=== PATIENT | female | born 1940 | race Caucasian/White ===

== ENCOUNTER 2024-09-13 10:04 | Emergency (ER) | payer MEDICARE, OTHER, SELFPAY ==
[2024-09-13] VITALS (11 sets, daily range): BP systolic 140–178; BP diastolic 67–86; PULSE 67–81; RESP 15–25; TEMP 36.8; O2SAT 95–100; BMI 21.1
--- NOTE | 2024-09-13 10:03 | ED.GENADULT ---
HPI - General Adult General Chief complaint: Fall Stated complaint: Fall Time Seen by Provider: 09/13/24 10:14 History of Present Illness HPI narrative: 84-year-old woman who lives in assisted living facility, [facility] in [place], brought in by medics after being found on the floor. Patient notes that she has had quite a few falls over the last week. He is currently complaining of right knee pain and unwilling/unable to bear weight secondary to pain. Her right leg is somewhat internally rotated and foreshortened. She does not have obvious bruises. Apparently there is some dementia at baseline and she has not appointment with her primary care physician to review this on the . Patient's recollection of the events over the last week including multiple falls and how she ended up on the floor today is not helpful today. She states she does not currently have any abdominal pain, headache, chest pain. She does not think she has had a cough or fever. Related Data Home Medications Medication Instructions Recorded Confirmed ASPIRIN (Aspir-Low) 81 mg PO Q DAY ##0 08/26/12 CALCIUM CARBONATE (TUMS ) 500 mg PO PRN ##0 08/26/12 CPAP: CPAP/PAP Nasal Mask HS ##0 08/26/12 Coenzyme Q10 (#CO Q-10) 100 mg PO Q DAY ##0 08/26/12 PARTIALLY HYDROLYZED GUAR 1 tbls PO QD-TID ##0 08/26/12 (#BENEFIBER) [VITAMINS ] ##0 08/26/12 cholecalciferol (vitamin D3) 25 1,000 iu PO Q DAY ##0 08/26/12 mcg (1,000 unit) tablet (Vitamin D3) cyanocobalamin (vitamin B-12) 500 500 mcg PO QDAY ##0 08/26/12 mcg tablet (Vitamin B-12) famotidine 20 mg tablet 20 mg PO HS ##0 08/26/12 nitroglycerin 0.4 mg sublingual 0.4 mg sublingual PRN ##0 08/26/12 tablet (Nitrostat) CALCIUM CARBONATE/VITAMIN D3 1 ctb PO BID ##0 08/27/12 (Calcium 600 With Vit D Chew Tb) MULTIVITAMIN (DAILY COURTNEY) 1 tab PO ##0 08/27/12 metoprolol tartrate 50 mg tablet 50 mg PO BID ##0 08/27/12 simvastatin 20 mg tablet (Zocor) 2 tabs PO HS ##0 08/27/12 Previous Rx's Medication Instructions Recorded alendronate 70 mg tablet (Fosamax) 70 mg PO QWEEK ##12 12/24/12 melatonin 1 mg tablet 1 mg PO BEDTIME sleep #60 tabs 09/13/24 trazodone 50 mg tablet 25 mg (1/2 x 50 mg) PO BEDTIME PRN 09/13/24 insomnia #30 tabs Allergies Allergy/AdvReac Type Severity Reaction Status Date / Time From CRESTOR Allergy Mild MALAISE Uncoded 02/27/18 13:06 Review of Systems Review of Systems Narrative: Pertinent positive and negative findings as per HPI Patient History Medical History (Updated 09/13/24 @ 12:34 by Nalini Freire MD) Do not resuscitate status Hyperlipidemia History of colon cancer Coronary artery disease Social History Smoking Status: Never smoker Exam Initial Vital Signs Initial Vital Signs: Vital Signs Blood Pressure 143/86 H 09/13/24 10:07 General: Frail, while she is lying on the stretcher she is in no acute distress. HEENT: Moist mucous membranes, normal sclera with reactive pupils, Neck: No JVD, supple Respiratory: Lungs are clear to auscultation, no wheezing no rales no rhonchi. Full and symmetrical air movement, no tenderness with manipulation of the thorax Cardiac: Regular rate and rhythm no murmurs no bruits Abdomen: Soft, nontender, good bowel tones, no flank pain Skin: Warm and dry, minimal bruising, no sequelae of pressure sores from lying on the ground for an extended period of time Neurologic: Globally weak, she has difficulty in raising her right leg because of knee/hip pain but it does not appear to be week. No upper extremity localizing symptoms Extremities: No obvious bruising or contusion. Minor effusion to the right knee with tenderness and not wanting to bend the knee. Mild tenderness in the right hip as well exam is limited by pain in the knee and not wanting to move the leg at all. No significant swelling distal to the knee Psych: Cooperative, pleasantly confused Course Orders Ordered: ED Orders 09/13/24 10:11 CT cervical spine wo con Stat XR hip w pel if done RT 2V Stat XR knee RT 3V Stat 09/13/24 10:12 CT head/brain wo con Stat XR chest 1V Stat 09/13/24 10:30 TSH w/ Reflex to FT4 Stat 09/13/24 10:35 Complete Blood Count AUTO DIFF Stat Comprehensive Metabolic Panel Stat NT-proBNP (BNP-Adult 18+) Stat Troponin I Stat 09/13/24 11:03 EKG-12 Lead Stat 09/13/24 11:37 Urinalysis and Microscopic Stat Discontinued Medications Acetaminophen (Acetaminophen 325 Mg Tablet) 650 mg PO NOW ONE Stop: 09/13/24 12:09 Last Admin: 09/13/24 12:16 Dose: 650 mg Documented By: SHITAL Vital Signs Vital signs: Vital Signs - 8 hr 09/13/24 10:07 09/13/24 10:08 09/13/24 10:08 Temperature 98.2 F Pulse Rate 75 81 Respiratory Rate 16 Blood Pressure 143/86 H 159/85 H Pulse Oximetry 100 99 Oxygen Delivery Method Room Air 09/13/24 10:08 09/13/24 10:24 09/13/24 10:24 Temperature Pulse Rate 69 Respiratory Rate Blood Pressure 159/85 H 150/72 H Pulse Oximetry 99 Oxygen Delivery Method 09/13/24 10:30 09/13/24 11:03 09/13/24 11:30 Temperature Pulse Rate 67 79 78 Respiratory Rate 19 21 Blood Pressure Pulse Oximetry 98 98 95 Oxygen Delivery Method 09/13/24 11:37 09/13/24 11:37 09/13/24 12:00 Temperature Pulse Rate 75 73 Respiratory Rate 20 25 H Blood Pressure 164/76 H Pulse Oximetry 98 97 Oxygen Delivery Method 09/13/24 12:00 09/13/24 12:30 09/13/24 12:30 Temperature Pulse Rate 73 Respiratory Rate 15 Blood Pressure 178/72 H 163/76 H Pulse Oximetry 96 Oxygen Delivery Method Medical Decision Making Lab Data 09/13/24 10:35 09/13/24 10:35 Labs: Lab Results 09/13/24 09/13/24 Range/Units 10:35 11:37 WBC 9.0 (4.5-11.0) X10^3/uL RBC 4.35 (4.0-5.2) X10^6/uL Hgb 12.6 (12.0-16.0) g/dL Hct 37.6 (36-46) % MCV 86.3 (80-100) fL MCH 28.9 (26-34) PG MCHC 33.5 (30-36) % RDW 13.4 (11.6-14.8) % Plt Count 191 (150-400) X10^3/uL Neut % (Auto) 82.6 H (50-75) % Lymph % (Auto) 11.3 L (25-40) % [place] % (Auto) 5.7 (3-14) % Eos % (Auto) 0.1 L (2-4) % Baso % (Auto) 0.3 (0-2) % Neut # (Auto) 7400 H (8785-5673) /uL Lymph # (Auto) 1000 L (3349-7066) /uL [place] # (Auto) 500 (0-900) /uL Eos # (Auto) 0 (0-450) /uL Baso # (Auto) 0 (0-100) /uL Sodium 139 (137-145) mmol/L Potassium 4.0 (3.4-5.1) mmol/L Chloride 105 (98-107) mmol/L Carbon Dioxide 28 (22-32) mmol/L BUN 25 H (7-17) mg/dL Creatinine 0.74 (0.52-1.04) mg/dL Estimated GFR > 60 (>60) mL/min BUN/Creatinine Ratio 33.8 H (6-22) Glucose 110 (80-110) mg/dL Calcium 9.5 (8.4-10.2) mg/dL Total Bilirubin 0.7 (0.2-1.3) mg/dL AST 31 (14-36) IU/L ALT 17 (<35) IU/L Alkaline Phosphatase 59 (38-126) U/L Troponin I < 0.012 (0.01-0.034) ng/mL NT-Pro-B Natriuret Pep 200 (<450) pg/mL Total Protein 7.1 (6.3-8.2) g/dL Albumin 4.1 (3.5-5.0) g/dL Globulin 3.0 (1.7-4.1) g/dL Albumin/Globulin Ratio 1.4 (1.0-2.8) Urine Color Yellow Urine Appearance Clear Urine pH 7.0 (4.5-8.0) Ur Specific [place] 1.015 (1.000-1.035) Urine Protein Negative (Negative) Urine Glucose (UA) Negative (Negative) g/dL Urine Ketones Negative (NEGATIVE) Urine Occult Blood Negative (Negative) Urine Nitrate Negative (Negative) Urine Bilirubin Negative (NEGATIVE) Urine Urobilinogen 0.2 (0.2) E.U./dL Ur Leukocyte Esterase Negative (NEGATIVE) Urine RBC 0-1/hpf (0-5/HPF) Urine WBC None seen (0-5/HPF) Ur Squamous Epith Cells None seen (0-5/HPF) Amorphous Sediment 1+ Urine Bacteria None seen (None) Ur Culture Indicated? Cult not indicated Vol Urine Centrifuged 10ml (spun) MDM Narrative Medical decision making narrative: CC: Multiple falls, found on the floor by assisted living staff this morning Complicating co-morbidities: Progressive cognitive decline, multiple increased falls Data collected from: patient, BLS transport team Social determinants of health that may influence the patients condition: Lives at [facility] which is independent living but not intermediate. Medical records reviewed: Medical records are not available Differential considered: Sepsis, urinary tract infection, hip fracture, knee sprain, knee fracture, progressive dementia Exam documented above, pertinent findings include: Frail, right-sided knee and hip pain. No significant abrasions or contusions despite the report of multiple falls. Lab Test results independently reviewed as above. Pertinent findings: CBC is reassuring Chemistries show no acute abnormalities Troponin is undetectable BNP is not elevated Urinalysis is unremarkable, no UTI TSH is appropriate Independently reviewed EKG: Sinus rhythm at a rate of 77, no acute ischemia Imaging studies independently reviewed: CT scan of the head shows no acute intracranial hemorrhage or additional pathology CT of the cervical spine shows arthritis without acute fractures Chest x-ray has a suggestion of generalized interstitial prominence, no comparison is available X-ray of the pelvis and right hip shows no fractures X-ray of the right knee shows arthritis but no fractures Treatments: Tylenol Re-evaluations: Patient is increasingly confused, she does not remember our initial evaluation. Currently complaining that she simply hurts all over, it is worse when she sleeps on the floor which she did last night. She has no localizing complaints at this time. She is willing to bend her knee and states when I externally rotate her right hip she has back pain. She is willing to try Tylenol. Face sheet from [facility] indicates that Carmencita Hernandez, daughter who lives in [facility] is her primary contact. Phone #[phone]. Patient indicates that Willis vidales is her partner. He lives in [place]. Phone number is [phone]. Patient's son, Amilcar Hernandez [phone] Patient has a history of right hip pain, old lacunar infarcts, and moved into [facility] July 14, 2024. Discussion: Had a nice discussion with patient's daughter who is actually a fruit or nut farmworker and currently at a wedding on the [facility]. The patient's son is driving up from [employer] at this time. The daughter notes that mom has been having a stepwise decline over the last 2-3 months. The last 3 days been particularly difficult. She also notes that when she does not want to do anything and does not want to be bothered or touched she will simply say that she hurts all over and will not move. This is consistent with what she is complaining of today. I reviewed the workup that does not show any acute abnormalities with the patient's daughter. Also shared with her my concern that assisted living is probably not going to be safe for her for much longer and looking into dementia care facility we will be appropriate. I will make sure that I have copies of blood work as well as all imaging studies given to the patient at time of discharge to share with her new primary care physician with her appointment scheduled for the . We will review all of the findings with her son who is going to come and pick her up. Apparently staff at [facility] his asked if we might give her a small dose of trazodone to help with sleep, she tends to be much more alert and appropriate when she has had a good night sleep. We will give her a prescription for 25 mg of trazodone for this purpose. Patient's son is available to help her get home. His plan is to stay with her until they can find a more definitive treatment plan for her and get her to her new primary care physician on Sunday. Discharge Plan Departure Patient Disposition: Home Clinical Impression: Confusion, Arthritis pain Fall Qualifiers: Encounter type: initial encounter Qualified Code(s): W19.XXXA - Unspecified fall, initial encounter Activity Restrictions/Additional Instructions: Thank you for coming in today Your workup including CT scan of your head and your neck( given all of your recent falls), chest x-ray, pelvis, hip and knee x-rays do not show any acute fractures. You do have quite a bit of arthritis. Your medical workup was reassuring, no evidence of infection, urinary tract issue, heart attack or stroke I am concerned that you are not sleeping as well as you could be. This may be contributing to your daytime of confusion. I have given you a prescription for trazodone, half a pill that can be used at night to help you sleep if needed. I have also given you a prescription for melatonin to take every single night to see if we can help keep your circadian rhythms balanced. Smaller doses of melatonin actually are better, more does not do more. This is not a sleeping pill per se, it is simply helps with circadian rhythms I am concerned that your confusion does represent Alzheimer's disease. I spoke with your daughter about safe options for you. In the near future you and your family are going to need to discuss the probability that a dementia care facility maybe the best option to keep you safe and healthy. I have given you copies of the workup from the emergency room today to share with your primary care physician with your follow up appointment on Sunday Prescriptions: New trazodone 50 mg tablet 25 mg PO BEDTIME PRN (Reason: insomnia) Qty: 30 0RF melatonin 1 mg tablet 1 mg PO BEDTIME Qty: 60 0RF No Action ASPIRIN (Aspir-Low) 81 mg PO Q DAY Qty: 0 PARTIALLY HYDROLYZED GUAR (#BENEFIBER) 1 tbls PO QD-TID Qty: 0 Coenzyme Q10 (#CO Q-10) 100 mg PO Q DAY Qty: 0 CPAP: CPAP/PAP Nasal Mask HS Qty: 0 famotidine 20 MG tablet 20 mg PO HS Qty: 0 nitroglycerin [Nitrostat] 0.4 MG tablet, sublingual 0.4 mg Sublingual PRN Qty: 0 cyanocobalamin (vitamin B-12) [Vitamin B-12] 500 MCG tablet 500 mcg PO QDAY Qty: 0 CALCIUM CARBONATE (TUMS ) 500 mg PO PRN Qty: 0 cholecalciferol (vitamin D3) [Vitamin D3] 1,000 UNIT tablet 1,000 iu PO Q DAY Qty: 0 [VITAMINS ] Qty: 0 CALCIUM CARBONATE/VITAMIN D3 (Calcium 600 With Vit D Chew Tb) 1 ctb PO BID Qty: 0 metoprolol tartrate 50 MG tablet 50 mg PO BID Qty: 0 simvastatin [Zocor] 20 MG tablet 2 tabs PO HS Qty: 0 MULTIVITAMIN (DAILY COURTNEY) 1 tab PO Qty: 0 alendronate [Fosamax] 70 MG tablet 70 mg PO QWEEK Qty: 12 1RF Referrals: Miscellaneous,Doctor, MD [Non-Staff] - Stand Alone Forms: Patient Portal/API
--- NOTE | 2024-09-13 10:11 | DI.RAD.S_ITS ---
PROCEDURE: XR HIP W PEL IF DONE RT 2V INDICATIONS: falls, right hip and knee pain TECHNIQUE: AP pelvis with lateral view(s) of the right hip(s). COMPARISON: [facility], CR, XR KNEE RT 3V, 09/13/2024, 10:32. [facility], CR, XR CHEST 1V, 09/13/2024, 10:32. FINDINGS: Bones: No fractures or dislocations. Pelvic ring appears intact. No suspicious bony lesions. Age-appropriate bony degenerative changes are seen. Soft tissues: The visualized bowel gas pattern is normal. No suspicious soft tissue calcifications. Right-sided pelvic clips are seen. IMPRESSION: No displaced fractures are seen on these plain films. Postoperative and degenerative changes are seen. Dictated by: Iker Martinez M.D. on 09/13/2024 at 10:23 Approved by: Iker Martinez M.D. on 09/13/2024 at 10:23
--- NOTE | 2024-09-13 10:11 | DI.CT.S_ITS ---
PROCEDURE: CT CERVICAL SPINE WO CON INDICATIONS: multiple recent falls TECHNIQUE: Noncontrast 3 mm thick sections acquired from the skull base to the T4 level. Sagittal and coronal reformats were then constructed. For radiation dose reduction, the following was used: automated exposure control, adjustment of mA and/or kV according to patient size. COMPARISON: [facility], CT, CT HEAD/BRAIN WO CON, 09/13/2024, 10:50. [facility], CR, XR CHEST 1V, 09/13/2024, 10:32. [facility], CR, XR KNEE RT 3V, 09/13/2024, 10:32. [facility], CR, XR HIP W PEL IF DONE RT 2V, 09/13/2024, 10:32. FINDINGS: Image quality: This examination is somewhat limited by quantum mottle artifact. Bones: No fractures or dislocations. Visualized superior ribs are intact. Focal degenerative change is seen involving the C1-C2 interface anteriorly. There is moderate disc space narrowing seen at C5-C6 and C6-C7. Minimal anterolisthesis can be seen at C6-C7. Soft tissues: Prevertebral soft tissues are normal in thickness. No paravertebral hematomas. No apical pneumothoraces. IMPRESSION: No displaced fracture or traumatic subluxation. Focal lower cervical spine degenerative changes are seen. Dictated by: Iker Martinez M.D. on 09/13/2024 at 10:37 Approved by: Iker Martinez M.D. on 09/13/2024 at 10:38
--- NOTE | 2024-09-13 10:11 | DI.RAD.S_ITS ---
PROCEDURE: XR KNEE RT 3V INDICATIONS: falls, knee pain TECHNIQUE: 3 views of the knee were acquired. COMPARISON: [facility], CR, XR HIP W PEL IF DONE RT 2V, 09/13/2024, 10:32. [facility], CR, XR CHEST 1V, 09/13/2024, 10:32. FINDINGS: Bones: No fractures or dislocations. No suspicious bony lesions. There is moderate medial and lateral femorotibial joint space narrowing seen, with associated remodeling changes including subchondral sclerosis and osteophyte formation along the jointline. Osteophyte formation can be seen along the margins of the patella. Soft tissues: No large joint effusion. No suspicious soft tissue calcifications. IMPRESSION: No acute bony abnormality or significant effusion. Underlying generalized degenerative changes are seen, which are likely age-appropriate. Dictated by: Iker Martinez M.D. on 09/13/2024 at 10:23 Approved by: Iker Martinez M.D. on 09/13/2024 at 10:24
--- NOTE | 2024-09-13 10:12 | DI.RAD.S_ITS ---
PROCEDURE: XR CHEST 1V INDICATIONS: weakness, multiple falls TECHNIQUE: One view of the chest was acquired. COMPARISON: [facility], CR, XR KNEE RT 3V, 09/13/2024, 10:32. [facility], CR, XR HIP W PEL IF DONE RT 2V, 09/13/2024, 10:32. FINDINGS: Surgical changes and devices: None. Lungs and pleura: On this supine examination, no large pneumothorax or large pleural effusions are seen. No focal areas of lung consolidation are seen. Mild generalized interstitial prominence can be seen. Mediastinum: The cardiac contours are within normal limits. The aorta demonstrates calcification and tortuosity. Bones and chest wall: No suspicious bony lesions. Age-appropriate bony degenerative changes are seen. Overlying soft tissues appear unremarkable. IMPRESSION: Mild generalized interstitial prominence can be seen. Please consider mild pulmonary edema versus atypical infiltrate. Dictated by: Iker Martinez M.D. on 09/13/2024 at 10:22 Approved by: Iker Martinez M.D. on 09/13/2024 at 10:22
--- NOTE | 2024-09-13 10:12 | DI.CT.S_ITS ---
PROCEDURE: CT HEAD/BRAIN WO CON INDICATIONS: multiple falls TECHNIQUE: Noncontrast 4.5 mm thick angled axial sections acquired from the foramen magnum to the vertex, with coronal and sagittal reformats. For radiation dose reduction, the following was used: automated exposure control, adjustment of mA and/or kV according to patient size. COMPARISON: [facility], CT, CT CERVICAL SPINE WO CON, 09/13/2024, 10:50. [facility], CR, XR CHEST 1V, 09/13/2024, 10:32. [facility], CR, XR KNEE RT 3V, 09/13/2024, 10:32. [facility], CR, XR HIP W PEL IF DONE RT 2V, 09/13/2024, 10:32. FINDINGS: Image quality: Diagnostic. CSF spaces: Basal cisterns are patent. No extra-axial fluid collections. The ventricles are symmetric in size and shape. Brain: No intracranial bleeds or masses. There is cerebral volume loss for age, with resultant ventricular and sulcal prominence. There are periventricular and deep white matter chronic small vessel ischemic changes. There is intracranial internal carotid artery atherosclerosis. Skull and face: Calvarium and visualized facial bones appear intact, without suspicious lesions. Sinuses: Visualized sinuses and mastoids are clear. IMPRESSION: No acute intracranial hemorrhage is seen. No acute intracranial pathology. Dictated by: Iker Martinez M.D. on 09/13/2024 at 10:38 Approved by: Iker Martinez M.D. on 09/13/2024 at 10:39
[2024-09-13 10:56] LABS: Add Manual Diff / Slide Review NO; Basophils Absolute Auto 0 /uL (0-100); Basophils Percent Auto 0.3 % (0-2); Eosinophils Absolute Auto 0 /uL (0-450); Eosinophils Percent Auto 0.1 % (2-4); Hematocrit 37.6 % (36-46); Hemoglobin 12.6 g/dL (12.0-16.0); Lymphocytes Absolute Auto 1000 /uL (1100-4500); Lymphocytes Percent Auto 11.3 % (25-40); Mean Corpuscular HGB Conc 33.5 % (30-36); Mean Corpuscular Hemoglobin 28.9 PG (26-34); Mean Corpuscular Volume 86.3 fL (80-100); Monocytes Absolute Auto 500 /uL (0-900); Monocytes Percent Auto 5.7 % (3-14); Neutrophils Absolute Auto 7400 /uL (1500-7000); Neutrophils Percent Auto 82.6 % (50-75); Platelet Count 191 X10^3/uL (150-400); Red Blood Cell Count 4.35 X10^6/uL (4.0-5.2); Red Cell Distribution Width 13.4 % (11.6-14.8)
[2024-09-13 11:06] LABS: Alanine Aminotransferase 17 IU/L (<35); Albumin 4.1 g/dL (3.5-5.0); Albumin Globulin Ratio 1.4 (1.0-2.8); Alkaline Phosphatase 59 U/L (38-126); Aspartate Aminotransferase 31 IU/L (14-36); BUN Creatinine Ratio 33.8 (6-22); Bilirubin Total 0.7 mg/dL (0.2-1.3); Blood Urea Nitrogen 25 mg/dL (7-17); Calcium 9.5 mg/dL (8.4-10.2); Carbon Dioxide 28 mmol/L (22-32); Chloride 105 mmol/L (98-107); Estimated Glomerular Filt Rate > 60 mL/min (>60); Glucose 110 mg/dL (80-110); HEMOLYSIS < 15 (0-50); Sodium 139 mmol/L (137-145); Total Protein 7.1 g/dL (6.3-8.2)
--- NOTE | 2024-09-13 11:11 | EKG_ITS ---
[place] [id number] [place] [id number] Test Date: 2024-09-13 Pat Name: Torie Hernandez Department: [facility] Room: Gender: Female Spearer: CHANDRIKA : 1940 Requested By: Order Number: [id number] Reading MD: Chase Jett Measurements Intervals [place] Rate: 77 P: 46 WI: 156 QRS: -13 QRSD: 94 T: 43 QT: 400 QTc: 452 Interpretive Statements Sinus rhythm with premature supraventricular complexes Minimal voltage criteria for LVH, may be normal variant ( Benedicto product ) Septal infarct , age undetermined Electronically Signed On 09-13-2024 18:11:43 PDT by Chase Jett
[2024-09-13 11:18] LABS: NT-proBNP (BNP-Adult 18+) 200 pg/mL (<450); Troponin I < 0.012 ng/mL (0.01-0.034)
[2024-09-13 11:48] LABS: Appearance Urine UA CLEAR; Bilirubin Urine UA NEGATIVE (NEGATIVE); Color Urine UA YELLOW; Glucose Urine UA NEGATIVE (Negative); Ketones Urine UA NEGATIVE (NEGATIVE); Leukocyte Esterase Urine UA NEGATIVE (NEGATIVE); Nitrite Urine UA NEGATIVE (Negative); Occult Blood Urine UA NEGATIVE (Negative); Protein Urine UA NEGATIVE (Negative); Specific Gravity Urine UA 1.015 (1.000-1.035); Urobilinogen Urine UA 0.2 E.U./dL (0.2)
[2024-09-13 12:02] LABS: Amorphous Sediment Urine 1+; Bacteria Urine None Seen; Culture Indicated Urine Cult Not Indicated; RBC Urine 0-1/HPF (0-5/HPF); Squamous Epithelial Cell Urine None Seen (0-5/HPF); Urine Volume 10mL (spun); WBC Urine None Seen (0-5/HPF)
[2024-09-13] MEDS: ACETAMINOPHEN 325 MG TABLET 650 MG PO (12:16)
[2024-09-13 13:14] LABS: TSH w/ Reflex to FT4 1.28 uIU/mL (0.47-4.68)
== END 2024-09-13 13:54 | disposition home or self-care (01) ==
PROVIDERS: Emergency Provider Emergency Medicine; PCP Internal Medicine
DX: M17.11 Unilateral primary osteoarthritis, right knee (principal); R41.0 Disorientation, unspecified; S09.90XA Unspecified injury of head, initial encounter; W18.30XA Fall on same level, unspecified, initial encounter; F03.90 Unspecified dementia, unspecified severity, without behavioral disturbance, psychotic disturbance, mood disturbance, and anxiety; R29.6 Repeated falls
CPT/HCPCS: 36415; 70450; 71045; 72125; 73502; 73562; 80053; 81001; 83880; 84443; 84484; 85025; 93005; 99283; 99284